=== PATIENT | female | born 1990 | race African-American/Black ===

== ENCOUNTER 2017-03-31 12:32 | Outpatient (CLI) | payer OTHER ==
--- NOTE | 2017-03-31 13:34 | RADRPT ---
PROCEDURE: OB ultrasound for biophysical profile CLINICAL INDICATION: Preeclampsia TECHNIQUE: Multiple sonographic images of the pelvis were obtained. Transabdominal view of the gr avid uterus are available for review. The images were reviewed on a PACS workstation. COMPARISON: None FINDINGS: breathing movement = 2/2 tone = 2/2 motion = 2/2 JOHANNA = 2/2 JOHANNA = 10.57 cm Single live intrauterine with cardiac activity. heart rate equals 139 beats p er minute. Presentation is cephalic. The placenta is posterior. IMPRESSION: 1. Single viable intrauterine gestation. 2. Biophysical profile = 8. 3. JOHANNA = 10.57 cm. RPTAT: KK .Willian Luz MD, MD Date Time Electronically viewed and signed by .Willian Luz MD, MD on 03/31/2017 13:33 .B/
[2017-03-31] MEDS ORDERED: PRENAT PO (13:45)
[2017-03-31 14:34] LABS: BASOPHILS % 0.2 % (0.0-2.0); EOSINOPHILS % 0.6 % (0.0-7.0); HEMATOCRIT 30.5 % (37.0-47.0); HEMOGLOBIN 10.1 g/dl (12.0-16.0); LYMPHOCYTES % 15.3 % (15.0-51.0); MEAN CORPUSCULAR HEMOGLOBIN 26.4 pg (29.0-33.0); MEAN CORPUSCULAR HGB CONC 33.1 g/dl (32.0-37.0); MEAN CORPUSCULAR VOLUME 79.6 fl (82.0-101.0); MEAN PLATELET VOLUME 11.3 fl (7.4-10.4); MONOCYTE # 0.8 10^3/ul (0.3-0.9); MONOCYTES % 11.7 % (0.0-11.0); NEUTROPHIL # 4.7 10^3/ul (1.6-7.5); NEUTROPHILS % 71.7 % (39.0-77.0); PLATELET COUNT 378 10^3/UL (140-415); RED BLOOD COUNT 3.83 10^6/ul (4.20-5.40); RED CELL DISTRIBUTION WIDTH 14.5 % (11.5-14.5); WHITE BLOOD COUNT 6.5 10^3/ul (4.8-10.8)
[2017-03-31 15:12] LABS: ADD UMIC YES; UR ASCORBIC ACID 20 mg/dL (NEGATIVE); UR BACTERIA FEW /HPF (NONE SEEN); UR BILIRUBIN (Dip) NEGATIVE (NEGATIVE); UR BLOOD (Dip) NEGATIVE (NEGATIVE); UR CLARITY SLIGHTLY CLOUDY (CLEAR); UR COLOR YELLOW (YELLOW); UR GLUCOSE (Dip) NEGATIVE (NEGATIVE); UR KETONES (Dip) NEGATIVE (NEGATIVE); UR LEUKOCYTE ESTERASE (Dip) TRACE Leu/ul (NEGATIVE); UR MUCUS MODERATE /HPF (NONE SEEN); UR NITRITE (Dip) NEGATIVE (NEGATIVE); UR RBC 2 /HPF (0-5); UR SPECIFIC GRAVITY (Dip) 1.025 (1.003-1.030); UR SQUAMOUS EPITHELIAL CELL FEW /HPF (FEW); UR TOTAL PROTEIN (Dip) 1+ mg/dl (NEGATIVE); UR UROBILINOGEN (Dip) NEGATIVE (NEGATIVE)
[2017-03-31 15:18] LABS: ALBUMIN 3.3 g/dl (3.3-4.9); ALBUMIN/GLOBULIN RATIO 0.89; BILIRUBIN,INDIRECT 0.1 mg/dl (0-1.1); BILIRUBIN,TOTAL 0.1 mg/dl (0.2-1.3); CALCIUM 9.1 mg/dl (8.4-10.2); CREATININE 0.65 mg/dl (0.44-1.00); POTASSIUM 3.9 mmol/L (3.5-5.1); URIC ACID 4.4 mg/dl (3.1-7.9)
--- NOTE | 2017-03-31 17:43 | CONS ---
Date/Time of Note Date/Time of Note DATE: 03/31/17 TIME: 17:31 Consultation Date/Type/Reason Admit Date/Time March 31, 2017 OB triage consult Reason for Consultation This patient is a 26 years old 3 para 0 1 spontaneous 1 with estimated date of confinement of April 11, 2017 which makes her 38 weeks and 3 days. She was referred from her physician's office to triage for evaluation of elevated blood pressure On examination she is a well-developed well-nourished lady near term in no acute distress. Her abdomen is soft very scattered contraction. heart tone is normal with good variability occasional acceleration with no decelerations Her general vital signs are normal with blood pressure of 119/81 ,pulse rate of 91, respiration 18, temperature 98.7. On repeated blood pressure measurement anywhere around 131/76 and Laboratory Tests Test 03/31/17 13:10 White Blood Count 6.510^3/ul Red Blood Count 3.8310^6/ul Hemoglobin 10.1g/dl Hematocrit 30.5% Mean Corpuscular Volume 79.6fl Mean Corpuscular Hemoglobin 26.4pg Mean Corpuscular Hemoglobin Concent 33.1g/dl Red Cell Distribution Width 14.5% Platelet Count 57007^3/UL Mean Platelet Volume 11.3fl Neutrophils % 71.7% Lymphocytes % 15.3% Monocytes % 11.7% Eosinophils % 0.6% Basophils % 0.2% Nucleated Red Blood Cells % 0.0/100WBC Neutrophils # 4.710^3/ul Lymphocytes # 1.010^3/ul Monocytes # 0.810^3/ul Eosinophils # 0.010^3/ul Basophils # 0.010^3/ul Nucleated Red Blood Cells # 0.010^3/ul Urine Color YELLOW Urine Clarity SLIGHTLY CLOUDY Urine pH 5.0 Urine Specific [place] 1.025 Urine Ketones NEGATIVEmg/dL Urine Nitrite NEGATIVEmg/dL Urine Bilirubin NEGATIVEmg/dL Urine Urobilinogen NEGATIVEmg/dL Urine Leukocyte Esterase TRACELeu/ul Urine Microscopic RBC 2/HPF Urine Microscopic WBC 8/HPF Urine Squamous Epithelial Cells FEW/HPF Urine Bacteria FEW/HPF Urine Mucus MODERATE/HPF Urine Hemoglobin NEGATIVEmg/dL Urine Glucose NEGATIVEmg/dL Urine Total Protein 1+mg/dl Sodium Level 138mmol/L Potassium Level 3.9mmol/L Chloride Level 103mmol/L Carbon Dioxide Level 23mmol/L Anion Gap 16 Blood Urea Nitrogen 5mg/dl Creatinine 0.65mg/dl Glucose Level 70mg/dl Uric Acid 4.4mg/dl Calcium Level 9.1mg/dl Total Bilirubin 0.1mg/dl Direct Bilirubin 0.00mg/dl Indirect Bilirubin 0.1mg/dl Aspartate Amino Transf (AST/SGOT) 50IU/L Alanine Aminotransferase (ALT/SGPT) 24IU/L Alkaline Phosphatase 112IU/L Total Protein 7.0g/dl Albumin 3.3g/dl Globulin 3.70g/dl Albumin/Globulin Ratio 0.89 131/79 Constitutional: No chills, No diaphoresis, No disoriented, No febrile, No improved, No no complaints, No other, No poor po, No requiring IVF, No requiring O2 Eyes: No discharge, No no complaints, No other, No pain, No redness, No visual change ENT: other (Her ear nose throat appears to be normal no thyroid enlargement no neck vein distention), No bleeding, No congestion, No discharge, No dysphagia, No no complaints, No pain, No sore throat Respiratory: No cough, No no complaints, No other, No pain, No pleuritic pain, No shortness of breath, No sputum, No wheezing Cardiovascular: other (Normal sinus rhythm no murmur), No chest pain, No edema, No lightheadedness, No no complaints, No orthopenea , No palpitations, No paroxysmal nocturnal dyspnea Gastrointestinal: No blood, No constipation, No decreased appetite, No diarrhea , No flatus, No nausea, No no complaints, No other, No pain, No passing stool, No vomiting Genitourinary: other (Pelvic examination was not performed because she was not having any contractions), No bleeding, No discharge, No dysuria, No flank pain, No hematuria, No no complaints Musculoskeletal: No back pain, No bone/joint pain, No neck pain, No no complaints, No other, No restricted range of motion, No swelling Skin: No bruising, No erythema, No laceration, No no complaints, No other, No pruritis, No rash, No skin lesions Neurologic: other (Knee-jerk reflex was normal ,no ankle edema), No confusion, No dizziness, No focal-weakness, No headache, No no complaints , No seizure, No syncope Additional Comments On urinalysis there was just 1+ protein 8 WBCs leukocyte Estrace was just trace. On CBC exam she was somewhat anemic with hemoglobin of 10.1 hematocrit 30.5 but her platelet was normal 378,000 serum electrolytes and liver function tests was performed there were basically normal except for SGOT of was slightly elevated 50 with normal 15-46 international unit per liter electrolytes was within normal limits. We did an ultrasound study the report was single live intrauterine with heart activity of 139 bpm in vertex presentation placenta was posterior her amniotic fluid index was 10. 5 7 cm on biophysical profile was 04/05 Disposition. Patient was given containers for collection of 24 hours urine for protein and creatinine clearance She will return with the specimen for further follow-up . Exam/Review of Systems Results Result Diagram: 03/31/17 1310 03/31/17 1310 Results 24 hrs Laboratory Tests Test 03/31/17 13:10 White Blood Count 6.5 Red Blood Count 3.83 L Hemoglobin 10.1 L Hematocrit 30.5 L Mean Corpuscular Volume 79.6 L Mean Corpuscular Hemoglobin 26.4 L Mean Corpuscular Hemoglobin Concent 33.1 Red Cell Distribution Width 14.5 Platelet Count 378 Mean Platelet Volume 11.3 H Neutrophils % 71.7 Lymphocytes % 15.3 Monocytes % 11.7 H Eosinophils % 0.6 Basophils % 0.2 Nucleated Red Blood Cells % 0.0 Neutrophils # 4.7 Lymphocytes # 1.0 Monocytes # 0.8 Eosinophils # 0.0 Basophils # 0.0 Nucleated Red Blood Cells # 0.0 Urine Color YELLOW Urine Clarity SLIGHTLY CLOUDY A Urine pH 5.0 Urine Specific [place] 1.025 Urine Ketones NEGATIVE Urine Nitrite NEGATIVE Urine Bilirubin NEGATIVE Urine Urobilinogen NEGATIVE Urine Leukocyte Esterase TRACE A Urine Microscopic RBC 2 Urine Microscopic WBC 8 H Urine Squamous Epithelial Cells FEW Urine Bacteria FEW A Urine Mucus MODERATE Urine Hemoglobin NEGATIVE Urine Glucose NEGATIVE Urine Total Protein 1+ H Sodium Level 138 Potassium Level 3.9 Chloride Level 103 Carbon Dioxide Level 23 Anion Gap 16 Blood Urea Nitrogen 5 L Creatinine 0.65 Glucose Level 70 Uric Acid 4.4 Calcium Level 9.1 Total Bilirubin 0.1 L Direct Bilirubin 0.00 Indirect Bilirubin 0.1 Aspartate Amino Transf (AST/SGOT) 50 H Alanine Aminotransferase (ALT/SGPT) 24 Alkaline Phosphatase 112 Total Protein 7.0 Albumin 3.3 Globulin 3.70 H Albumin/Globulin Ratio 0.89 BARBARA RUIZ MD Mar 31, 2017 17:42
--- NOTE | 2017-03-31 18:20 | TRIAGE ---
OB Triage Datetime Report Generated by CPN: 03/31/2017 18:20 Datetime: 03/31/2017 13:43 Time of Arrival: 03/31/2017 12:30 EGA: 38.3 Arrived By: Ambulatory Arrived From: Office Chief Complaint: Elevated BPs in clinic Movement: Present Contractions: Denies/Absent Rupture of Membranes: Denies Vaginal Discharge: Denies Recent Sexual Intercouse: Denies Abdominal Trauma: Not Applicable Time Provider Notified: 03/31/2017 14:49 Provider Notified: Nikita Initial Plan: NST, BPP/JOHANNA, PIH labs Datetime: 03/31/2017 13:28 Labor Evaluation Frequency: 4-10 Monitor Mode: External Duration (sec)2399: 50-90 Quality: Mild Pattern: Normal: <= 5 Contractions in 10 Minutes Resting Tone [place]: Relaxed Heart Rate FHR Baseline Rate: 130 Monitor Mode: External US FHR Baseline Changes: No Baseline Change Variability: Moderate 6-25 bpm Accelerations: 15X15 Decelerations: None Category: Category II Pain Assessment Pain Presence: None/Denies Datetime: 03/31/2017 12:45 Assessment Type: Triage Maternal Assessment Level of Consciousness: Fully Conscious DTR's/Clonus: DTRs 2+; No Clonus Headache: Denies Blurred Vision: No Respiratory Effort: Unlabored; Regular Rhythm; Equal Expansion Breath Sounds, Left: Clear and Equal Breath Sounds, Right: Clear and Equal Nausea/Vomiting: Denies RUQ Epigastric Pain: Denies Lower Extremities Edema: Bilateral Lower Extremities Degree: 1+ Upper Extremities Edema: None Degree: None Facial Edema: None Fall Risk Assessment History of Falling: (0) No Secondary Diagnosis: (0) No Ambulatory Aid: (0) Bedrest/Nurse Assist IV Therapy: (0) No Gait: (0) Normal/Bedrest/Immobile Mental Status: (0) Oriented to Own Ability Fall Score: 0 Fall Risk Score Definition: No Risk: No action required Datetime: 03/31/2017 12:42 Stage of : OB Triage
== END 2017-03-31 17:00 | disposition home or self-care (01) ==
LOC: OBT 12:32 → L-D 12:37 → OBT 17:00
PROVIDERS: ATTEND Obstetrics & Gynecology
DX: O26.893 Other specified pregnancy related conditions, third trimester (principal); R03.0 Elevated blood-pressure reading, without diagnosis of hypertension; Z3A.38 38 weeks gestation of pregnancy
CPT/HCPCS: 36415; 76818; 80053; 81001; 84560; 85025; Z7500; G0463

== ENCOUNTER 2017-04-01 13:06 | Outpatient (CLI) | payer OTHER ==
[~2017-04-01] VITALS: Ht 165.1 cm; Wt 85.0 kg
[~2017-04-01 13:06] MED LIST: PRENAT PO
[2017-04-01 13:49] VITALS: BP 133/82; PULSE 94; Ht 165.1 cm; Wt 85.0 kg
--- NOTE | 2017-04-01 14:01 | RADRPT ---
PROCEDURE: OB ultrasound for biophysical profile CLINICAL INDICATION: labor TECHNIQUE: Multiple sonographic images of the pelvis were obtained. Transabdominal views of the g ravid uterus are available for review. The images were reviewed on a PACS workstation. COMPARISON: Biophysical profile dated 03/31/2017 FINDINGS: breathing movement = 2/2 tone = 2/2 motion = 2/2 JOHANNA = 2/2 JOHANNA = 9.2 cm Single live intrauterine with cardiac activity of 134 bpm. position is cephal ic. The placenta is posterior. IMPRESSION: 1. Single live intrauterine gestation. 2. Biophysical profile = 04/05. 3. JOHANNA = 9.2 cm. RPTAT: HH .Lois Chaves MD, Date Time Electronically viewed and signed by .Lois Chaves MD, on 04/01/2017 14:01 .G/
[2017-04-01 16:35] LABS: SCRET 0.65 mg/dl (0.44-1.00)
--- NOTE | 2017-04-01 16:43 | PN ---
Triage Information Date/Time 04/01/17 Reason for visit: R/O PIH Weeks of Gestation 38+ /Para 3/0 Diabetes: none Hypertention: none Additional information here to r/o PIH 24 hr urine collection for protein in 200.3mg/24 hrs Objective Vital Signs Date Time Temp Pulse Resp B/P Pulse Ox O2 Delivery O2 Flow Rate FiO2 04/01/17 13:49 97.9 94 133/82 Heart Rate: 140's Heart Rate Comments reactive Contractions: None Exam N/A Results/Medications Result Diagram: 04/01/17 1330 Results 24 hrs Laboratory Tests Test 04/01/17 13:30 Urine Random Creatinine 73.38 Urine Collection Duration 24 Urine Total Volume 24 Hours 2225 Urine Creatinine Timed 24 Creatinine Clearance 174.4 H Urine Total Volume (Protein) 2225 Urine Total Protein 24 Hour 200.3 Creatinine 0.62 Imaging Results 1. Single live intrauterine gestation. 2. Biophysical profile = 04/05. 3. JOHANNA = 9.2 cm. Disposition: Discharge Assessment/Plan PIH ruled out will deliver at 39-40 weeks CIARA CLARK MD Apr 01, 2017 16:43
--- NOTE | 2017-04-01 16:44 | PD.PPDC ---
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
--- NOTE | 2017-04-01 17:00 | TRIAGE ---
OB Triage Datetime Report Generated by CPN: 04/01/2017 16:59 Datetime: 04/01/2017 16:37 Pattern: Normal: <= 5 Contractions in 10 Minutes Resting Tone [place]: Relaxed Contraction Comments: no uc FHR Baseline Rate: 135 Monitor Mode: External US Variability: Moderate 6-25 bpm Accelerations: 15X15 Decelerations: None Category: Category I Pain Presence: None/Denies Pain Type: N/A Datetime: 04/01/2017 16:00 Pattern: Normal: <= 5 Contractions in 10 Minutes Resting Tone [place]: Relaxed Contraction Comments: no uc FHR Baseline Rate: 135 Monitor Mode: External US Variability: Moderate 6-25 bpm Accelerations: 15X15 Decelerations: None Category: Category I Pain Presence: None/Denies Pain Type: N/A Datetime: 04/01/2017 15:00 Pattern: Normal: <= 5 Contractions in 10 Minutes Resting Tone [place]: Relaxed Contraction Comments: NO UC FHR Baseline Rate: 135 Monitor Mode: External US Variability: Moderate 6-25 bpm Accelerations: 15X15 Decelerations: None Category: Category I Pain Presence: None/Denies Pain Type: N/A Datetime: 04/01/2017 13:47 Stage of : OB Triage Level of Consciousness: Fully Conscious DTR's/Clonus: DTRs 2+; No Clonus Headache: Denies Blurred Vision: No Respiratory Effort: Unlabored; Regular Rhythm; Equal Expansion Breath Sounds, Left: Clear and Equal Breath Sounds, Right: Clear and Equal Nausea/Vomiting: Denies RUQ Epigastric Pain: Denies Lower Extremities Edema: None Degree: None Upper Extremities Edema: None Degree: None Facial Edema: None History of Falling: (0) No Secondary Diagnosis: (0) No Ambulatory Aid: (0) Bedrest/Nurse Assist IV Therapy: (0) No Gait: (0) Normal/Bedrest/Immobile Mental Status: (0) Oriented to Own Ability Fall Score: 0 Fall Risk Score Definition: No Risk: No action required Datetime: 04/01/2017 13:36 Time of Arrival: 04/01/2017 13:08 EGA: 38.4 Arrived By: Ambulatory Arrived From: Home Chief Complaint: follow up for 24hr urine collection, pt. deny headache, deny epigastric pain, den y visual disturbance Movement: Present Contractions: Denies/Absent Rupture of Membranes: Denies Vaginal Discharge: Denies Recent Sexual Intercouse: Denies Abdominal Trauma: Not Applicable Patient Complaints: None Time Provider Notified: 04/01/2017 13:45 Provider Notified: Initial Plan: u/s for bpp, 24hr urine for total protein and creatine clearance, creatine Datetime: 03/31/2017 13:43 EGA: 38.3
== END 2017-04-01 16:50 | disposition home or self-care (01) ==
LOC: OBT 13:06 → L-D 13:08 → OBT 16:50
PROVIDERS: ATTEND Obstetrics & Gynecology
DX: Z34.83 Encounter for supervision of other normal pregnancy, third trimester (principal); Z3A.38 38 weeks gestation of pregnancy
CPT/HCPCS: 76818; 82565; 82575; 84156; Z7500; G0463

== ENCOUNTER 2017-04-08 09:00 | Inpatient (IN) | payer OTHER ==
[~2017-04-08] VITALS: Ht 165.1 cm; Wt 84.8 kg
[2017-04-08] MEDS ORDERED: LACTATED RINGER'S 1,000 ML IV PRN (11:00)
[2017-04-08] MEDS ORDERED: DINOPROSTONE 10 MG VAG SUPP VAG ONE (11:00)
[2017-04-08] MEDS ORDERED: METHYLERGONOVINE 0.2 MG INJ IM PRN (11:00)
[2017-04-08] MEDS ORDERED: IBUPROFEN 600 MG TAB PO PRN (11:00)
[2017-04-08] MEDS ORDERED: OXYTOCIN 30 UNITS/LR 500 ML IV SCH ×2 (11:00)
[2017-04-08] MEDS ORDERED: OXYTOCIN 30 UNITS/LR 500 ML IV PRN (11:00)
[2017-04-08] MEDS ORDERED: LIDOCAINE 1% (MPF) 30 ML INJ INJ PRN (11:00)
[2017-04-08] MEDS ORDERED: CARBOPROST 250 MCG INJ IM PRN (11:00)
[2017-04-08] MEDS ORDERED: MISOPROSTOL 200 MCG TAB PR PRN (11:00)
[2017-04-08 11:04] VITALS: Ht 165.1 cm; Wt 84.8 kg
[2017-04-08 11:05] VITALS: BP 131/86; PULSE 82; RESP 20
[2017-04-08] MEDS ORDERED: VALA500T PO (11:12)
[2017-04-08] MEDS: LACTATED RINGER'S 1,000 ML IV SCH ×2 (11:21→16:49)
[2017-04-08 12:55] LABS: BASOPHILS % 0.3 % (0.0-2.0); EOSINOPHILS # 0.1 10^3/ul (0.0-0.5); EOSINOPHILS % 0.8 % (0.0-7.0); HEMATOCRIT 31.4 % (37.0-47.0); HEMOGLOBIN 10.1 g/dl (12.0-16.0); INR 0.91; LYMPHOCYTES # 1.1 10^3/ul (0.8-2.9); LYMPHOCYTES % 15.7 % (15.0-51.0); MEAN CORPUSCULAR HEMOGLOBIN 25.6 pg (29.0-33.0); MEAN CORPUSCULAR HGB CONC 32.2 g/dl (32.0-37.0); MEAN CORPUSCULAR VOLUME 79.5 fl (82.0-101.0); MEAN PLATELET VOLUME 11.8 fl (7.4-10.4); MONOCYTE # 0.9 10^3/ul (0.3-0.9); MONOCYTES % 12.9 % (0.0-11.0); NEUTROPHIL # 5.1 10^3/ul (1.6-7.5); NEUTROPHILS % 69.9 % (39.0-77.0); PLATELET COUNT 374 10^3/UL (140-415); PROTIME 12.3 Sec (12.2-14.2); RED BLOOD COUNT 3.95 10^6/ul (4.20-5.40); RED CELL DISTRIBUTION WIDTH 15.3 % (11.5-14.5); WHITE BLOOD COUNT 7.3 10^3/ul (4.8-10.8)
[2017-04-08 12:56] LABS: PARTIAL THROMBOPLASTIN TIME 28.3 Sec (25.0-35.0)
[2017-04-08 12:58] LABS: ALBUMIN 3.3 g/dl (3.3-4.9); ALBUMIN/GLOBULIN RATIO 0.86; BILIRUBIN,INDIRECT 0.1 mg/dl (0-1.1); BILIRUBIN,TOTAL 0.1 mg/dl (0.2-1.3); CALCIUM 9.3 mg/dl (8.4-10.2); CREATININE 0.57 mg/dl (0.44-1.00); POTASSIUM 3.8 mmol/L (3.5-5.1); TOTAL PROTEIN 7.1 g/dl (6.1-8.1); URIC ACID 4.3 mg/dl (3.1-7.9)
[2017-04-08 13:21] LABS: ADD UMIC NO; UR ASCORBIC ACID NEGATIVE (NEGATIVE); UR BILIRUBIN (Dip) NEGATIVE (NEGATIVE); UR BLOOD (Dip) NEGATIVE (NEGATIVE); UR CLARITY CLEAR (CLEAR); UR COLOR YELLOW (YELLOW); UR GLUCOSE (Dip) NEGATIVE (NEGATIVE); UR KETONES (Dip) TRACE mg/dL (NEGATIVE); UR LEUKOCYTE ESTERASE (Dip) NEGATIVE Leu/ul (NEGATIVE); UR NITRITE (Dip) NEGATIVE (NEGATIVE); UR SPECIFIC GRAVITY (Dip) 1.015 (1.003-1.030); UR TOTAL PROTEIN (Dip) NEGATIVE (NEGATIVE); UR UROBILINOGEN (Dip) NEGATIVE (NEGATIVE)
[2017-04-08 13:55] LABS: BARBITURATES Negative (NEGATIVE); BENZODIAZEPINES Negative (NEGATIVE); CANNABINOIDS Negative (NEGATIVE); COCAINE Negative (NEGATIVE); OPIATES Negative (NEGATIVE)
--- NOTE | 2017-04-08 18:12 | HP ---
Date/Time of Note Date/Time of Note DATE: 04/08/17 TIME: 18:09 OB - History Hx of Present Free Text/Dictation Admitted at 39+ weeks for induction of labor per request Last Menstrual Period: Jul 05, 2016 Estimated Due Date: Apr 11, 2017 : 2 Para: 1 Care: Good Care Ultrasounds: Normal mid trimester US Obstetrical Complications: Other ( History of genital herpes) Medical Complications: None Past Family/Social History * Past Medical, Surgical, Family and Obstetric Histories reviewed from chart. Blood Type: O+ Rubella: immune RPR/VDRL: Negative GBS Status: Negative HBsAG: Negative OB Admission Exam Vital Signs Vital Signs Vital Signs Date Time Temp Pulse Resp B/P Pulse Ox O2 Delivery O2 Flow Rate FiO2 04/08/17 11:05 98.0 82 20 131/86 100 Room Air Physical Exam HEENT: WNL Heart: Rhythm Normal Lungs: Clear, Equal Abdomen: WNL Extremities: Normal Reflexes: Normal Cervical Dilatation: None Effacement: 0% Station: -3 Membranes: Intact Heart Rate: 130's Accelerations: Accelerations Present Decelerations: No Decelerations Varibility: Marked Contractions on Admission: None Last 72 hours Lab Results CBC & BMP 04/08/17 10:30 Liver Function Test 04/08/17 10:30 Alanine Aminotransferase (ALT/SGPT) 26 Albumin 3.3 Alkaline Phosphatase 128 H Aspartate Amino Transf (AST/SGOT) 23 Direct Bilirubin 0.00 Total Protein 7.1 OB Assessment/Plan Reason for admission: induction of labor Other Assessment: Term gestation History of genital herpes Currently has no evidence of external and internal eruptions Induction Method: per Misoprostol Protocol CIARA CLARK MD Apr 08, 2017 18:12
[2017-04-09] MEDS: LACTATED RINGER'S 1,000 ML IV SCH ×3 (01:24→13:03)
[2017-04-09] MEDS: BUTORPHANOL 2 MG INJ IV PRN ×2 (03:29→07:35)
[2017-04-09] MEDS ORDERED: VALACYCLOVIR 500 MG TAB PO SCH (09:00)
[2017-04-09] MEDS ORDERED: EPHEDrine SULFATE 50 MG/5 ML SYG IV PRN (09:30)
[2017-04-09] MEDS ORDERED: ONDANSETRON 4 MG INJ IV PRN (09:30)
[2017-04-09] MEDS ORDERED: DIPHENHYDRAMINE 50 MG INJ IV PRN (09:30)
[2017-04-09] MEDS ORDERED: NALOXONE (0.4 MG/ML) INJ IV PRN (09:30)
[2017-04-09] MEDS: FENTAnyl 2MCG/ML-ROPIV 0.2% 100 ML BAG EPI SCH ×2 (10:04→16:10)
[2017-04-09] MEDS ORDERED: IBUPROFEN 600 MG TAB PO PRN (10:30)
[2017-04-09] MEDS ORDERED: MINERAL OIL LIGHT 10 ML VIAL TOP ONE (10:30)
[2017-04-09] MEDS ORDERED: OXYTOCIN 30 UNITS/LR 500 ML IV SCH ×2 (15:30→21:12)
[2017-04-09] MEDS ORDERED: MINERAL OIL LIGHT 10 ML VIAL TOP PRN (20:00)
--- NOTE | 2017-04-09 21:11 | LDN ---
Date/Time of Note Date/Time of Note DATE: 04/09/17 TIME: 21:08 Delivery Summary of a vaible baby girl weighing 2915 grams, or 6# 7 oz,19.25" long, and with Apgars of 9/9. Weeks of Gestation 39w 4d Placenta Delivered: Spontaneously Meconium: none Episiotomy: No Perineal laceration: 1 Laceration repair: Small first degree perineal laceration and a small left vaginal laceration repaired with 2-0 chromic. Anesthesia type: Epidural Estimated blood loss: 300 Sponge & Needle done & correct: Yes All needle counts correct: Yes Any foreign bodies felt in the: No (vagina) Problems: Infant Delivery Information Sex Sex: female Apgars 1 Minute: 9 5 Minute: 9 Suctioning Nose & mouth suctioned at she: Yes Delee suction performed: No Umbilical Cord Umbilical cord with: 3 Vessels Cord presentations: nuchal cord Nuchal cord present X: 1 Cord Blood was obtained: Yes Mother & Baby Disposition Disposition Mom & Baby to Maternity; Good: Yes Baby to NICU: No BRANDON ZEPEDA MD Apr 09, 2017 21:11
[2017-04-09] MEDS ORDERED: OXYTOCIN 30 UNITS/LR 500 ML IV PRN (21:30)
[2017-04-09] MEDS ORDERED: MISOPROSTOL 200 MCG TAB PR PRN (21:30)
[2017-04-09] MEDS ORDERED: LANOLIN 7 GM TUBE TOP PRN (21:30)
[2017-04-09] MEDS ORDERED: CARBOPROST 250 MCG INJ IM PRN (21:30)
[2017-04-09] MEDS ORDERED: METHYLERGONOVINE 0.2 MG INJ IM PRN (21:30)
[2017-04-09] MEDS ORDERED: OXYCODONE/ASPIRIN (4.88/325) TAB PO PRN (21:30)
[2017-04-09] MEDS ORDERED: MAGNESIUM SULFATE 20 GM/500 ML 500 ML IV SCH (22:00)
[2017-04-09] MEDS ORDERED: MAGNESIUM SULFATE 4 GM/100 ML 100 ML IVPB ONE (22:00)
[2017-04-10 00:30] VITALS: BP 140/83; PULSE 75; RESP 18
[2017-04-10] MEDS: LACTATED RINGER'S 1,000 ML IV* SCH (01:25)
[2017-04-10 04:30] VITALS: BP 141/93; PULSE 69; RESP 18
[2017-04-10] MEDS: IBUPROFEN 600 MG TAB PO SCH ×5 (06:00→23:37)
[2017-04-10 07:07] LABS: BASOPHILS % 0.1 % (0.0-2.0); EOSINOPHILS % 0.2 % (0.0-7.0); HEMATOCRIT 27.9 % (37.0-47.0); LYMPHOCYTES # 1.2 10^3/ul (0.8-2.9); LYMPHOCYTES % 7.4 % (15.0-51.0); MEAN CORPUSCULAR HEMOGLOBIN 25.6 pg (29.0-33.0); MEAN CORPUSCULAR HGB CONC 32.3 g/dl (32.0-37.0); MEAN CORPUSCULAR VOLUME 79.5 fl (82.0-101.0); MEAN PLATELET VOLUME 11.2 fl (7.4-10.4); MONOCYTE # 1.5 10^3/ul (0.3-0.9); MONOCYTES % 8.8 % (0.0-11.0); PLATELET COUNT 330 10^3/UL (140-415); RED BLOOD COUNT 3.51 10^6/ul (4.20-5.40); RED CELL DISTRIBUTION WIDTH 15.4 % (11.5-14.5); WHITE BLOOD COUNT 16.9 10^3/ul (4.8-10.8)
[2017-04-10 08:30] VITALS: BP 127/82; PULSE 56; RESP 16
[2017-04-10 16:00] VITALS: BP 129/84; PULSE 69; RESP 18
--- NOTE | 2017-04-10 16:39 | DS ---
Date/Time of Note Date/Time of Note Home next day DATE: 04/10/17 TIME: 16:38 Obstetrical Discharge Record Final Diagnosis Final Diagnosis: Term delivered Other Final Diagnosis Status post vaginal delivery Vaginal Delivery Obstetrical Delivery: Spontaneous, Laceration, Repaired Complications Augmentation: Yes Induction: Yes Condition on Discharge Physical Assessment Last Vitals: See nurse's notes Voiding: Yes Bowel Movement: Yes Breast: Soft, non-tender, Filling Fundus: Firm Abdomen and Incision: Soft bowel sounds present Episiotomy: Perineum is healing Calf Tenderness: No Patient Condition: Good CIARA CLARK MD Apr 10, 2017 16:39
--- NOTE | 2017-04-10 16:40 | PD.PPDC ---
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
[2017-04-10] MEDS ORDERED: IBUP-1542 PO (16:41)
[2017-04-10] MEDS: CEPHALEXIN 500 MG CAP PO SCH ×2 (18:30→23:38)
[2017-04-10 20:13] VITALS: BP 137/84; PULSE 67; RESP 18
[2017-04-11] MEDS: LACTATED RINGER'S 1,000 ML IV* SCH ×2 (01:07→06:27)
[2017-04-11 05:24] VITALS: BP 128/79; PULSE 65; RESP 18
[2017-04-11] MEDS: CEPHALEXIN 500 MG CAP PO SCH ×2 (06:08→11:54)
[2017-04-11] MEDS: IBUPROFEN 600 MG TAB PO SCH ×2 (06:08→11:54)
[2017-04-11 08:15] VITALS: BP 124/77; PULSE 77; RESP 16
[2017-04-11] MEDS ORDERED: DIPHTH/TET/ACEL PERTUSS (ADULT) 0.5 ML VIAL IM* ONE (09:00)
[2017-04-11 11:15] LABS: BASOPHILS % 0.1 % (0.0-2.0); EOSINOPHILS # 0.1 10^3/ul (0.0-0.5); EOSINOPHILS % 1.2 % (0.0-7.0); HEMATOCRIT 28.6 % (37.0-47.0); HEMOGLOBIN 9.1 g/dl (12.0-16.0); LYMPHOCYTES # 1.2 10^3/ul (0.8-2.9); LYMPHOCYTES % 11.4 % (15.0-51.0); MEAN CORPUSCULAR HEMOGLOBIN 25.4 pg (29.0-33.0); MEAN CORPUSCULAR HGB CONC 31.8 g/dl (32.0-37.0); MEAN CORPUSCULAR VOLUME 79.9 fl (82.0-101.0); MEAN PLATELET VOLUME 10.6 fl (7.4-10.4); MONOCYTE # 0.9 10^3/ul (0.3-0.9); NEUTROPHIL # 8.3 10^3/ul (1.6-7.5); NEUTROPHILS % 78.8 % (39.0-77.0); PLATELET COUNT 339 10^3/UL (140-415); RED BLOOD COUNT 3.58 10^6/ul (4.20-5.40); RED CELL DISTRIBUTION WIDTH 15.7 % (11.5-14.5); WHITE BLOOD COUNT 10.6 10^3/ul (4.8-10.8)
== END 2017-04-11 15:51 | disposition home or self-care (01) | DRG 775 ==
LOC: L-D 09:16 → PP1 04-10 00:22
PROVIDERS: ADMIT Obstetrics & Gynecology; ATTEND Obstetrics & Gynecology
PROC: 10E0XZZ Delivery of Products of Conception, External Approach (ICD-10-PCS; principal; 2017-04-09)
PROC: 0HQ9XZZ Repair Perineum Skin, External Approach (ICD-10-PCS; 2017-04-09)
DX: O70.0 First degree perineal laceration during delivery (principal); Z37.0 Single live birth; Z3A.39 39 weeks gestation of pregnancy
CPT/HCPCS: 62319; 80053; 80307; 81003; 84560; 85025; 85610; 85730; 86592; 86900; 86901; 87340; 90715; J0595; J2590; J3010; J7120